=== PATIENT | male | born 1975 | race Two or more races ===

== ENCOUNTER 2020-06-27 06:21 | Inpatient (IN) | payer OTHER ==
[~2020-06-27] VITALS: Ht 167.6 cm; Wt 63.5 kg
[2020-06-27] VITALS (20 sets, daily range): BP systolic 91–121; BP diastolic 54–96
[2020-06-27] MEDS ORDERED: Insulin Human Regular 100units/ml 3ml IV ONE (06:30)
--- NOTE | 2020-06-27 06:33 | Emergency Room Report ---
History of Present Illness General Chief Complaint: Generalized Weakness Source: Patient, EMS Present Illness HPI Patient is a 44-year-old male past medical history of diabetes type 2 not insulin-dependent who presents to the ER for generalized weakness. Patient was brought in from home by EMS. Patient's blood sugar was reading high which is over 500. Patient denies fever or chills. He complains of nausea. He complains of generalized body aches. He denies any chest pain or shortness of breath. He denies any abdominal pain or vomiting. Allergies: Coded Allergies: No Known Allergies (Unverified , 06/27/20) COVID-19 Screening Contact w/high risk pt: No Experienced COVID-19 symptoms?: No COVID-19 Testing performed SCHOOL PSYCHOLOGY SPECIALIST: No Patient History Reviewed Nursing Documentation: PMH: Agreed; PSxH: Agreed Nursing Documentation-PMH Hx Diabetes: Yes - DM 2 Review of Systems All Other Systems: negative except mentioned in HPI Physical Exam Vital Signs Date Time Temp Pulse Resp B/P (MAP) Pulse Ox O2 Delivery O2 Flow Rate FiO2 06/27/20 06:18 98.6 98 16 104/74 (84) 98 Room Air Sp02 EP Interpretation: reviewed, normal General Appearance: mild distress, thin Head: normocephalic, atraumatic Eyes: bilateral eye normal inspection, bilateral eye PERRL ENT: dry mucus membranes Neck: full range of motion, supple/symm/no masses Respiratory: chest non-tender, lungs clear, normal breath sounds, speaking full sentences Cardiovascular #1: tachycardia Gastrointestinal: normal bowel sounds, non tender, soft, non-distended, no guarding, no rebound Rectal: deferred Musculoskeletal: normal range of motion, no calf tenderness, no lower extremity edema Neurologic: hand frame surgical elastic knitter III-XII nml as tested, oriented x3 Psychiatric: no suicidal/homicidal ideation Skin: no rash Lymphatic: no adenopathy Procedures Critical Care Time Critical Care Time Total critical care time: Approximately 35 minutes. Due to a high probability of clinically significant, life threatening deterioration, the patient required my highest level of preparedness to intervene emergently and I personally spent this critical care time directly and personally managing the patient. This critical care time included obtaining a history; examining the patient; pulse o ximetry; ordering and review of studies; arranging urgent treatment with development of a management plan; evaluation of patient's response to treatment; frequent reassessment; and, discussions with other providers.This critical care time was performed to assess and manage the high probability of imminent, life- threatening deterioration that could result in multi-organ failure. It was exclusive of separately billable procedures and treating other patients and teaching time. Please see MDM section and the rest of the note for further information on patient assessment and treatment. Medical Decision Making Diagnostic Impression: Primary Impression: DKA, type 2 Additional Impressions: Hyponatremia Dehydration Hypokalemia ER Course Patient pancultured. Patient is hemoconcentrated. Patient was started on broad-spectrum antibiotics. Patient has elevated white blood cell count with mildly elevated lactic acid. Could be secondary to DKA but treated as sepsis. Patient's potassium is only 2.5. Patient is being given 60 mEq of IV potassium chloride as well as 60 mEq of oral potassium chloride prior to start of insulin drip. Patient will be admitted to ICU for further treatment and evaluation. Laboratory Tests Test 06/27/20 06:31 06/27/20 06:32 06/27/20 06:38 06/27/20 08:31 Venous Blood pH 7.241 Venous Blood Partial Pressure CO2 27.0 Venous Blood Partial Pressure O2 25.1 Venous Blood HCO3 11.3 Venous Blood Base Excess -14.1 Venous Blood Carboxyhemoglobin 0.7 % (0.5-1.5) Methemoglobin 0.4 White Blood Count 26.0 K/UL (4.8-10.8) *H Red Blood Count 5.43 M/UL (4.70-6.10) Hemoglobin 17.5 G/DL (14.2-18.0) Hematocrit 54.8 % (42.0-52.0) H Mean Corpuscular Volume 101 FL (80-99) H Mean Corpuscular Hemoglobin 32.2 PG (27.0-31.0) H Mean Corpuscular Hemoglobin Concent 32.0 G/DL (32.0-36.0) Red Cell Distribution Width 12.4 % (11.6-14.8) Platelet Count 321 K/UL (150-450) Mean Platelet Volume 6.8 FL (6.5-10.1) Neutrophils (%) (Auto) % (45.0-75.0) Lymphocytes (%) (Auto) % (20.0-45.0) Monocytes (%) (Auto) % (1.0-10.0) Eosinophils (%) (Auto) % (0.0-3.0) Basophils (%) (Auto) % (0.0-2.0) Differential Total Cells Counted 100 Neutrophils % (Manual) 82 % (45-75) H Lymphocytes % (Manual) 6 % (20-45) L Monocytes % (Manual) 4 % (1-10) Eosinophils % (Manual) 0 % (0-3) Basophils % (Manual) 0 % (0-2) Band Neutrophils 8 % (0-8) Platelet Estimate Adequate Platelet Morphology Normal Macrocytosis 1+ Sodium Level 128 MMOL/L (136-145) L Potassium Level 2.5 MMOL/L (3.5-5.1) *L Chloride Level 84 MMOL/L (98-107) L Carbon Dioxide Level 12 MMOL/L (21-32) L Anion Gap 32 mmol/L (5-15) H Blood Urea Nitrogen 56 mg/dL (7-18) H Creatinine 2.0 MG/DL (0.55-1.30) H Estimated Glomerular Filtration Rate 36.8 mL/min (>60) Glucose Level 797 MG/DL (74-106) *H Calcium Level 7.4 MG/DL (8.5-10.1) L Magnesium Level 2.7 MG/DL (1.8-2.4) H Total Bilirubin 0.7 MG/DL (0.2-1.0) Aspartate Amino Transferase (AST) 12 U/L (15-37) L Alanine Aminotransferase (ALT) 16 U/L (12-78) Alkaline Phosphatase 92 U/L (46-116) Troponin I 0.007 ng/mL (0.000-0.056) Total Protein 6.9 G/DL (6.4-8.2) Albumin 2.9 G/DL (3.4-5.0) L Globulin 4.0 g/dL Albumin/Globulin Ratio 0.7 (1.0-2.7) L Lipase 74 U/L (73-393) Acetone Level Positive-small (NEGATIVE) Lactic Acid Level 2.60 mmol/L (0.4-2.0) H POC Whole Blood Glucose Pending Test 06/27/20 09:05 06/27/20 09:09 Urine Color Pale yellow Urine Appearance Clear Urine pH 5 (4.5-8.0) Urine Specific Harshaw 1.015 (1.005-1.035) Urine Protein 1+ (NEGATIVE) H Urine Glucose (UA) 4+ (NEGATIVE) H Urine Ketones 4+ (NEGATIVE) H Urine Blood 3+ (NEGATIVE) H Urine Nitrite Negative (NEGATIVE) Urine Bilirubin Negative (NEGATIVE) Urine Urobilinogen Normal MG/DL (0.0-1.0) Urine Leukocyte Esterase Negative (NEGATIVE) Urine RBC 0-2 /HPF (0 - 0) H Urine WBC 0 /HPF (0 - 0) Urine Squamous Epithelial Cells Occasional /LPF Urine Bacteria Occasional /HPF (NONE) Urine Opiates Screen Negative (NEGATIVE) Urine Barbiturates Screen Negative (NEGATIVE) Phencyclidine (PCP) Screen Negative (NEGATIVE) Urine Amphetamines Screen Negative (NEGATIVE) Urine Benzodiazepines Screen Negative (NEGATIVE) Urine Cocaine Screen Negative (NEGATIVE) Urine Marijuana (THC) Screen Positive (NEGATIVE) H Lactic Acid Level Pending EKG Diagnostic Results Troponin ordered: Yes When was troponin ordered?: Jun 27, 2020 EKG Time: 06:35 EP Interpretation: Lavern Angela MD Rate: tachycardiac - 132 bpm Rhythm: other - Sinus tachycardia ST Segments: no acute changes ASA given to the pt in ED: No Rhythm Strip Diag. Results Rhythm Strip Time: 06:42 EP Interpretation: yes - Lavern Angela MD Rate: 128 bpm Rhythm: no PVC's, no ectopy, other - Sinus tachycardia Chest X-Ray Diagnostic Results Chest X-Ray Diagnostic Results : Chest X-Ray Ordered: Yes # of Views/Limited/Complete: 1 View Indication: Other - DKA EP Interpretation: Yes Interpretation: no consolidation, no effusion, no pneumothorax, no acute cardiopulmonary disease Impression: No acute disease Electronically Signed by: Lavern Angela MD Last Vital Signs Date Time Temp Pulse Resp B/P (MAP) Pulse Ox O2 Delivery O2 Flow Rate FiO2 06/27/20 06:18 98.6 98 16 104/74 (84) 98 Room Air Disposition: ADMITTED INPATIENT - ICU Condition: Critical Physician Consult: Dr Bernstein and Dr. Kumar Scripts No Active Prescriptions or Reported Meds Additional Instructions: Please note that this report is being documented using [employer] technology. This can lead to erroneous entry secondary to incorrect interpretation by the dictating instrument. Sepsis Event Note Evaluation Current Stage of Sepsis: Sepsis Possible Source: Unknown Focused Exam Allergies: Coded Allergies: No Known Allergies (Unverified , 06/27/20) Date Exam Occurred: Jun 27, 2020 Time Exam Occurred: 10:00 Laboratory Studies Laboratory Tests Test 06/27/20 06:31 06/27/20 06:32 06/27/20 06:38 06/27/20 08:31 Venous Blood pH 7.241 Venous Blood Partial Pressure CO2 27.0 Venous Blood Partial Pressure O2 25.1 Venous Blood HCO3 11.3 Venous Blood Base Excess -14.1 Venous Blood Carboxyhemoglobin 0.7 % (0.5-1.5) Methemoglobin 0.4 White Blood Count 26.0 K/UL (4.8-10.8) *H Red Blood Count 5.43 M/UL (4.70-6.10) Hemoglobin 17.5 G/DL (14.2-18.0) Hematocrit 54.8 % (42.0-52.0) H Mean Corpuscular Volume 101 FL (80-99) H Mean Corpuscular Hemoglobin 32.2 PG (27.0-31.0) H Mean Corpuscular Hemoglobin Concent 32.0 G/DL (32.0-36.0) Red Cell Distribution Width 12.4 % (11.6-14.8) Platelet Count 321 K/UL (150-450) Mean Platelet Volume 6.8 FL (6.5-10.1) Neutrophils (%) (Auto) % (45.0-75.0) Lymphocytes (%) (Auto) % (20.0-45.0) Monocytes (%) (Auto) % (1.0-10.0) Eosinophils (%) (Auto) % (0.0-3.0) Basophils (%) (Auto) % (0.0-2.0) Differential Total Cells Counted 100 Neutrophils % (Manual) 82 % (45-75) H Lymphocytes % (Manual) 6 % (20-45) L Monocytes % (Manual) 4 % (1-10) Eosinophils % (Manual) 0 % (0-3) Basophils % (Manual) 0 % (0-2) Band Neutrophils 8 % (0-8) Platelet Estimate Adequate Platelet Morphology Normal Macrocytosis 1+ Sodium Level 128 MMOL/L (136-145) L Potassium Level 2.5 MMOL/L (3.5-5.1) *L Chloride Level 84 MMOL/L (98-107) L Carbon Dioxide Level 12 MMOL/L (21-32) L Anion Gap 32 mmol/L (5-15) H Blood Urea Nitrogen 56 mg/dL (7-18) H Creatinine 2.0 MG/DL (0.55-1.30) H Estimat Glomerular Filtration Rate 36.8 mL/min (>60) Glucose Level 797 MG/DL (74-106) *H Calcium Level 7.4 MG/DL (8.5-10.1) L Magnesium Level 2.7 MG/DL (1.8-2.4) H Total Bilirubin 0.7 MG/DL (0.2-1.0) Aspartate Amino Transf (AST/SGOT) 12 U/L (15-37) L Alanine Aminotransferase (ALT/SGPT) 16 U/L (12-78) Alkaline Phosphatase 92 U/L (46-116) Troponin I 0.007 ng/mL (0.000-0.056) Total Protein 6.9 G/DL (6.4-8.2) Albumin 2.9 G/DL (3.4-5.0) L Globulin 4.0 g/dL Albumin/Globulin Ratio 0.7 (1.0-2.7) L Lipase 74 U/L (73-393) Acetone Level Positive-small (NEGATIVE) Lactic Acid Level 2.60 mmol/L (0.4-2.0) H POC Whole Blood Glucose Pending Test 06/27/20 09:05 06/27/20 09:09 Urine Color Pale yellow Urine Appearance Clear Urine pH 5 (4.5-8.0) Urine Specific Harshaw 1.015 (1.005-1.035) Urine Protein 1+ (NEGATIVE) H Urine Glucose (UA) 4+ (NEGATIVE) H Urine Ketones 4+ (NEGATIVE) H Urine Blood 3+ (NEGATIVE) H Urine Nitrite Negative (NEGATIVE) Urine Bilirubin Negative (NEGATIVE) Urine Urobilinogen Normal MG/DL (0.0-1.0) Urine Leukocyte Esterase Negative (NEGATIVE) Urine RBC 0-2 /HPF (0 - 0) H Urine WBC 0 /HPF (0 - 0) Urine Squamous Epithelial Cells Occasional /LPF Urine Bacteria Occasional /HPF (NONE) Urine Opiates Screen Negative (NEGATIVE) Urine Barbiturates Screen Negative (NEGATIVE) Phencyclidine (PCP) Screen Negative (NEGATIVE) Urine Amphetamines Screen Negative (NEGATIVE) Urine Benzodiazepines Screen Negative (NEGATIVE) Urine Cocaine Screen Negative (NEGATIVE) Urine Marijuana (THC) Screen Positive (NEGATIVE) H Lactic Acid Level Pending Vital Signs Last 24 Hour Vital Signs Date Time Temp Pulse Resp B/P (MAP) Pulse Ox O2 Delivery O2 Flow Rate FiO2 06/27/20 08:40 98.2 118 24 116/77 100 Room Air 06/27/20 07:17 98.2 126 27 121/86 100 Room Air 06/27/20 06:21 98.6 121 16 98/76 98 Room Air 06/27/20 06:21 121 16 Room Air 06/27/20 06:18 98.6 98 16 104/74 (84) 98 Room Air Respiratory Exam: Clear Cardiovascular Exam: Tachycardia Capillary Refill: Less Than 2 Seconds Peripheral Pulse: Strong Lavern Angela M.D. Jun 27, 2020 06:33
[2020-06-27 06:46] LABS: HEMATOCRIT 54.8 % (42.0-52.0); HEMOGLOBIN 17.5 G/DL (14.2-18.0); MEAN CORPUSCULAR VOLUME 101 FL (80-99); PLATELET COUNT 321 K/UL (150-450); RED BLOOD COUNT 5.43 M/UL (4.70-6.10); RED CELL DISTRIBUTION WIDTH 12.4 % (11.6-14.8)
[2020-06-27] MEDS ORDERED: Sodium Bicarbonate 50ml Carp IV ONE (07:00)
[2020-06-27] MEDS ORDERED: Cefepime HCl 2 GM in D5W 55 ML IVPB ONE (07:00)
[2020-06-27] MEDS ORDERED: Azithromycin 500 MG in NS 275 ML IV ONE (07:00)
[2020-06-27 08:03] LABS: ALANINE AMINOTRANSFERASE 16 U/L (12-78); ALBUMIN 2.9 G/DL (3.4-5.0); ALBUMIN/GLOBULIN RATIO 0.7 (1.0-2.7); ALKALINE PHOSPHATASE 92 U/L (46-116); ANION GAP 32 mmol/L (5-15); ASPARTATE AMINO TRANSFERASE 12 U/L (15-37); BILIRUBIN,TOTAL 0.7 MG/DL (0.2-1.0); BLOOD UREA NITROGEN 56 mg/dL (7-18); CALCIUM 7.4 MG/DL (8.5-10.1); CARBON DIOXIDE 12 MMOL/L (21-32); CHLORIDE 84 MMOL/L (98-107); SODIUM 128 MMOL/L (136-145)
[2020-06-27 08:05] LABS: POTASSIUM 2.5 MMOL/L (3.5-5.1)
[2020-06-27 09:20] LABS: APPEARANCE,URINE CLEAR; BILIRUBIN, URINE NEGATIVE (NEGATIVE); COLOR,URINE PALE YELLOW; GLUCOSE, URINE (UA) 4+ (NEGATIVE); KETONES,URINE 4+ (NEGATIVE); LEUKOCYTE ESTERASE ,URINE NEGATIVE (NEGATIVE); NITRITE,URINE NEGATIVE (NEGATIVE); PH,URINE 5 (4.5-8.0); PROTEIN,URINE 1+ (NEGATIVE); UROBILINOGEN,URINE NORMAL MG/DL (0.0-1.0)
--- NOTE | 2020-06-27 10:30 | Diagnostic Imaging Report ---
Indication: Reason For Exam: Shortness of breath Technique: Single AP view of the chest. Comparison: None. Findings: The cardiomediastinal silhouette is within normal limits. There is no focal consolidation, pneumothorax or pleural effusion. Osseous structures demonstrate no acute abnormality. IMPRESSION: No radiographic evidence of acute cardiopulmonary process.
--- NOTE | 2020-06-27 11:26 | History and Physical ---
History of Present Illness General Date patient seen: Jun 27, 2020 Reason for Hospitalization: DKA Present Illness HPI Ramon Méndez is a 44 yo M with T2DM who presents to hospital with weakness, found to have DKA with glucose over 900, pH 7.24 on VBG, anion gap 32, severe hypokalemia now admitted to ICU. Patient has been feeling ill for past 2-3 days. Denies any precipitating factors like viral infection, sick contacts. Denies fever, chills, cough. Had been vomiting almost all solid food and most liquids he tried to consume since the past 2 days. Tried drinking pedialyte. Noticed he was urinating frequently but denies dysuria, hematuria. Takes oral diabetes me dication metformin. PMH: diabetes mellitus, type 2 PSH: denies FH: extensive family history of diabetes Soc Hx: denies smoking, drinking, substance use Allergies: Coded Allergies: No Known Allergies (Unverified , 06/27/20) COVID-19 Screening Contact w/high risk pt: No Recent Travel to affected area: No Experienced COVID-19 symptoms?: No Medication History No Active Prescriptions or Reported Meds Patient History Healthcare decision maker Resuscitation status Advanced Directive on File Review of Systems Constitutional: Reports: weakness; Denies: chills, fever Eye: Denies: eye pain, nose pain ENT: Denies: ear pain, throat pain Respiratory: Denies: cough, orthopnea, shortness of breath Cardiovascular: Denies: chest pain, edema, palpitations Gastrointestinal: Reports: abdominal pain, nausea, vomiting; Denies: melena, hematemesis Genitourinary: Denies: dysuria, hematuria Musculoskeletal: Denies: joint pain Skin: Denies: rash, dryness Psychiatric: Denies: anxiety Neurological: Denies: numbness, paresthesia Endocrine: Denies: excessive sweating, intolerance to temperature Hematologic/Lymphatic: Denies: anemia, easy bleeding Physical Exam General Appearance: WD/WN, no apparent distress, alert HEENT: normocephalic, atraumatic, PERRL, EOMI, pharynx normal Neck: non-tender, normal alignment, normal inspection Respiratory/Chest: chest wall non-tender, lungs clear, normal breath sounds, no respiratory distress, no accessory muscle use Cardiovascular/Chest: normal peripheral pulses, regular rhythm, no gallop/murmur, tachycardia Abdomen: normal bowel sounds, non tender, soft, no organomegaly Extremities: normal range of motion, non-tender, no calf tenderness, no edema, no cyanosis Skin Exam: normal pigmentation, warm/dry Neurologic: podiatric technician II-XII grossly normal, alert, oriented x 3, normal mood/affect Musculoskeletal: normal muscle bulk Last 24 Hour Vital Signs Date Time Temp Pulse Resp B/P (MAP) Pulse Ox O2 Delivery O2 Flow Rate FiO2 06/27/20 08:40 98.2 118 24 116/77 100 Room Air 06/27/20 07:17 98.2 126 27 121/86 100 Room Air 06/27/20 06:21 98.6 121 16 98/76 98 Room Air 06/27/20 06:21 121 16 Room Air 06/27/20 06:18 98.6 98 16 104/74 (84) 98 Room Air Laboratory Tests Test 06/27/20 06:31 06/27/20 06:32 06/27/20 06:38 06/27/20 08:31 Venous Blood pH 7.241 Venous Blood Partial Pressure CO2 27.0 Venous Blood Partial Pressure O2 25.1 Venous Blood HCO3 11.3 Venous Blood Base Excess -14.1 Venous Blood Carboxyhemoglobin 0.7 % (0.5-1.5) Methemoglobin 0.4 White Blood Count 26.0 K/UL (4.8-10.8) *H Red Blood Count 5.43 M/UL (4.70-6.10) Hemoglobin 17.5 G/DL (14.2-18.0) Hematocrit 54.8 % (42.0-52.0) H Mean Corpuscular Volume 101 FL (80-99) H Mean Corpuscular Hemoglobin 32.2 PG (27.0-31.0) H Mean Corpuscular Hemoglobin Concent 32.0 G/DL (32.0-36.0) Red Cell Distribution Width 12.4 % (11.6-14.8) Platelet Count 321 K/UL (150-450) Mean Platelet Volume 6.8 FL (6.5-10.1) Neutrophils (%) (Auto) % (45.0-75.0) Lymphocytes (%) (Auto) % (20.0-45.0) Monocytes (%) (Auto) % (1.0-10.0) Eosinophils (%) (Auto) % (0.0-3.0) Basophils (%) (Auto) % (0.0-2.0) Differential Total Cells Counted 100 Neutrophils % (Manual) 82 % (45-75) H Lymphocytes % (Manual) 6 % (20-45) L Monocytes % (Manual) 4 % (1-10) Eosinophils % (Manual) 0 % (0-3) Basophils % (Manual) 0 % (0-2) Band Neutrophils 8 % (0-8) Platelet Estimate Adequate Platelet Morphology Normal Macrocytosis 1+ Sodium Level 128 MMOL/L (136-145) L Potassium Level 2.5 MMOL/L (3.5-5.1) *L Chloride Level 84 MMOL/L (98-107) L Carbon Dioxide Level 12 MMOL/L (21-32) L Anion Gap 32 mmol/L (5-15) H Blood Urea Nitrogen 56 mg/dL (7-18) H Creatinine 2.0 MG/DL (0.55-1.30) H Estimat Glomerular Filtration Rate 36.8 mL/min (>60) Glucose Level 797 MG/DL (74-106) *H Calcium Level 7.4 MG/DL (8.5-10.1) L Magnesium Level 2.7 MG/DL (1.8-2.4) H Total Bilirubin 0.7 MG/DL (0.2-1.0) Aspartate Amino Transf (AST/SGOT) 12 U/L (15-37) L Alanine Aminotransferase (ALT/SGPT) 16 U/L (12-78) Alkaline Phosphatase 92 U/L (46-116) Troponin I 0.007 ng/mL (0.000-0.056) Total Protein 6.9 G/DL (6.4-8.2) Albumin 2.9 G/DL (3.4-5.0) L Globulin 4.0 g/dL Albumin/Globulin Ratio 0.7 (1.0-2.7) L Lipase 74 U/L (73-393) Acetone Level Positive-small (NEGATIVE) Lactic Acid Level 2.60 mmol/L (0.4-2.0) H POC Whole Blood Glucose Pending Test 06/27/20 09:05 06/27/20 09:09 Urine Color Pale yellow Urine Appearance Clear Urine pH 5 (4.5-8.0) Urine Specific Roy 1.015 (1.005-1.035) Urine Protein 1+ (NEGATIVE) H Urine Glucose (UA) 4+ (NEGATIVE) H Urine Ketones 4+ (NEGATIVE) H Urine Blood 3+ (NEGATIVE) H Urine Nitrite Negative (NEGATIVE) Urine Bilirubin Negative (NEGATIVE) Urine Urobilinogen Normal MG/DL (0.0-1.0) Urine Leukocyte Esterase Negative (NEGATIVE) Urine RBC 0-2 /HPF (0 - 0) H Urine WBC 0 /HPF (0 - 0) Urine Squamous Epithelial Cells Occasional /LPF Urine Bacteria Occasional /HPF (NONE) Urine Opiates Screen Negative (NEGATIVE) Urine Barbiturates Screen Negative (NEGATIVE) Phencyclidine (PCP) Screen Negative (NEGATIVE) Urine Amphetamines Screen Negative (NEGATIVE) Urine Benzodiazepines Screen Negative (NEGATIVE) Urine Cocaine Screen Negative (NEGATIVE) Urine Marijuana (THC) Screen Positive (NEGATIVE) H Lactic Acid Level 1.70 mmol/L (0.66-2.22) Height (Feet): 5 Height (Inches): 5.00 Weight (Pounds): 140 Medications Current Medications Medications (Trade) Dose Ordered Sig/Kalee Route PRN Reason Start Time Stop Time Status Last Admin Dose Admin Potassium Chloride 100 ml @ 100 mls/hr Q1HR IVPB 06/27/20 09:00 06/27/20 14:59 06/27/20 10:30 Assessment/Plan Assessment/Plan: #DKA #T2DM #Nausea/Vomiting #Hypokalemia Gap now closed. Initial glucose over 900, pH 7.24 on VBG, anion gap 32, urine ketone positive, severe hypokalemia now admitted to ICU. s/p 5 units IV insulin in ED and IVF boluses. - IVF with KCl - frequent glucose checks - BMP q4 hours - Insulin drip - Will transition to subQ insulin after gap remains closed - Endocrinology consult Dr. Parisi, recs appreciated - Pulmonology consult Dr. Kumar, recs appreciated #ERICKA #Hyponatremia No history of renal disease, initial Cr 1.5, now downtrending with IVF. Likely 2/2 dehydration. Sodium likely pseudohyponatremia from severe hyperglycemia. - IVF - trend BMP Diet: low carb DVT ppx: heparin subQ Code status: Full Dispo: likely home in 1-2 days pending symptomatic improvement and maintenance of anion gap closure/transition to subQ insulin I spent 82 minutes on this patient's case, and 42 minutes was dedicated to counseling and/or care coordination with RN, transplant case manager, consulting MD team I spent 40 of critical care time on this patient's case, including discussing with BIOLOGICAL AIDE regarding treatment plan, ordering DKA algorithm, frequent glucose and BMP checks, insulin drip calculations. Time of note may not reflect time patient was seen. Vernon Harvey M.D. Jun 27, 2020 11:26
[2020-06-27] MEDS ORDERED: Insulin Rate Change 1 Each MISC PRN (14:45)
[2020-06-27] MEDS: D5 1/2NS w/KCl 20mEq 1,000 ML IV SCH ×2 (16:00→22:44)
[2020-06-27 16:10] LABS: CALCIUM 8.6 MG/DL (8.5-10.1); CREATININE 1.5 MG/DL (0.55-1.30); POTASSIUM 4.2 MMOL/L (3.5-5.1)
[2020-06-27] MEDS: Insulin Reg 100 units Premix 100 ML IV SCH ×5 (16:30→21:03)
[2020-06-27] MEDS: Insulin Human Regular 100units/ml 3ml IV PRN ×4 (16:32→19:55)
--- NOTE | 2020-06-27 20:15 | Consultation ---
DATE OF CONSULTATION: 06/27/2020 PULMONARY CONSULTATION/ICU CONSULTATION CONSULTING PHYSICIAN: Kaz Kumar MD HISTORY OF PRESENT ILLNESS: This is a 44-year-old male with history of diabetes mellitus. He was brought by paramedics to the emergency room today with complaints of difficulty breathing. As per machinery mover notes, the patient was found sitting outside his home waiting for fire department. He had apparently called because he was feeling unwell. The patient was seen and evaluated in the emergency room. He has known history of [id number]-fnuivlcny diabetes. His sugar was over 500. He was found to be in DKA and was started on fluids and insulin. At this time, the patient states he is feeling better. PAST MEDICAL HISTORY: Diabetes mellitus. MEDICATIONS: Home medications not known at this time. Current medications include insulin, dextrose with potassium, subcu heparin, and Protonix. He has also received a single dose of cefepime and azithromycin in the emergency room. REVIEW OF SYSTEMS: Denies any headaches, hematemesis, melena, hematochezia, or weight loss. PREVIOUS SURGERIES: None. PHYSICAL EXAMINATION: GENERAL: Revealed a 44-year-old male. VITAL SIGNS: Blood pressure is 118/70, heart rate is 104, respirations 22, he is afebrile, and O2 sat 98% on room air. HEENT: Unremarkable. CHEST: Clear breath sounds bilaterally. ABDOMEN: Soft. EXTREMITIES: There is no edema. NEUROLOGIC: Nonfocal. LABORATORY DATA: Lab testing shows white count , hemoglobin of 17. Potassium 4.2 now, previously was 2.5. Initial glucose of 797. Current glucose 464. Hemoglobin A1c 10.5. Creatinine 2.6, now 1.7. ABG, pH 7.24, pCO2 of 27, pO2 of 25; this is venous gas. IMAGING STUDIES: Unremarkable with normal chest x-ray. IMPRESSION: 1. DKA. 2. Leukocytosis. 3. Hypokalemia. DISCUSSION: Admit to the hospital. Replace potassium. IV fluids. DVT prophylaxis. Insulin intravenously. Consider antibiotics. We will follow carefully. Kaz Kumar M.D. : Sneha JOB#: [id number] CC:
[2020-06-27 20:43] LABS: BLOOD UREA NITROGEN 30 mg/dL (7-18); CALCIUM 8.6 MG/DL (8.5-10.1); CARBON DIOXIDE 14 MMOL/L (21-32); CHLORIDE 99 MMOL/L (98-107); CREATININE 1.4 MG/DL (0.55-1.30); POTASSIUM 3.3 MMOL/L (3.5-5.1); SODIUM 133 MMOL/L (136-145)
[2020-06-27] MEDS: Heparin 5000 units/ml inj SUBQ SCH (21:10)
[2020-06-28] VITALS (18 sets, daily range): BP systolic 95–132; BP diastolic 61–84
[2020-06-28 00:11] LABS: ANION GAP 12 mmol/L (5-15); BLOOD UREA NITROGEN 25 mg/dL (7-18); CALCIUM 8.5 MG/DL (8.5-10.1); CARBON DIOXIDE 20 MMOL/L (21-32); CHLORIDE 103 MMOL/L (98-107); CREATININE 1.2 MG/DL (0.55-1.30); POTASSIUM 3.6 MMOL/L (3.5-5.1); SODIUM 135 MMOL/L (136-145)
[2020-06-28] MEDS: Insulin Reg 100 units Premix 100 ML IV SCH (04:14)
[2020-06-28 05:12] LABS: BASOPHILS % (AUTO) 1.2 % (0.0-2.0); HEMATOCRIT 41.1 % (42.0-52.0); HEMOGLOBIN 14.4 G/DL (14.2-18.0); LYMPHOCYTES % (AUTO) 6.3 % (20.0-45.0); MEAN CORPUSCULAR VOLUME 90 FL (80-99); MONOCYTES % (AUTO) 7.9 % (1.0-10.0); NEUTROPHILS % (AUTO) 84.6 % (45.0-75.0); PLATELET COUNT 242 K/UL (150-450); RED BLOOD COUNT 4.56 M/UL (4.70-6.10); RED CELL DISTRIBUTION WIDTH 11.6 % (11.6-14.8); WHITE BLOOD COUNT 14.5 K/UL (4.8-10.8)
[2020-06-28] MEDS: D5 1/2NS w/KCl 20mEq 1,000 ML IV SCH ×3 (05:16→18:06)
[2020-06-28 05:36] LABS: ANION GAP 9 mmol/L (5-15); BLOOD UREA NITROGEN 23 mg/dL (7-18); CALCIUM 7.9 MG/DL (8.5-10.1); CARBON DIOXIDE 22 MMOL/L (21-32); CHLORIDE 102 MMOL/L (98-107); CREATININE 1.1 MG/DL (0.55-1.30); POTASSIUM 3.5 MMOL/L (3.5-5.1); SODIUM 133 MMOL/L (136-145)
[2020-06-28 08:36] LABS: ANION GAP 8 mmol/L (5-15); BLOOD UREA NITROGEN 18 mg/dL (7-18); CALCIUM 8.3 MG/DL (8.5-10.1); CARBON DIOXIDE 22 MMOL/L (21-32); CHLORIDE 102 MMOL/L (98-107); CREATININE 0.9 MG/DL (0.55-1.30); POTASSIUM 3.6 MMOL/L (3.5-5.1); SODIUM 132 MMOL/L (136-145)
[2020-06-28] MEDS: Pantoprazole Inj IV SCH (09:02)
[2020-06-28] MEDS: Heparin 5000 units/ml inj SUBQ SCH ×2 (09:21→21:52)
[2020-06-28] MEDS ORDERED: Levemir Flexpen SUBQ SCH (10:00)
--- NOTE | 2020-06-28 10:40 | Pulmonology Progress Note ---
Subjective Interval Events: Remains in ICU; or insulin gtt Constitutional: Reports: no symptoms HEENT: Repors: no symptoms Respiratory: Reports: no symptoms Cardiovascular: Reports: no symptoms Gastrointestinal/Abdominal: Reports: no symptoms Allergies: Coded Allergies: No Known Allergies (Unverified , 06/27/20) Objective Last 24 Hour Vital Signs Date Time Temp Pulse Resp B/P (MAP) Pulse Ox O2 Delivery O2 Flow Rate FiO2 06/28/20 10:00 119 21 104/70 (81) 98 06/28/20 09:00 110 16 101/74 (83) 99 06/28/20 08:00 98.4 112 17 112/75 (87) 99 06/28/20 08:00 Room Air Room Air 06/28/20 07:43 107 06/28/20 07:00 118 20 132/74 (93) 99 06/28/20 06:00 113 16 109/72 (84) 98 06/28/20 05:00 105 17 115/77 (90) 99 06/28/20 04:00 Room Air Room Air 06/28/20 04:00 98.4 108 16 110/76 (87) 98 06/28/20 03:01 109 06/28/20 03:00 114 17 108/77 (87) 98 06/28/20 02:00 127 21 111/84 (93) 98 06/28/20 01:00 115 16 119/79 (92) 97 06/28/20 00:00 97.5 126 17 101/61 (74) 98 06/28/20 00:00 Room Air Room Air 06/27/20 23:02 118 06/27/20 23:00 122 19 114/76 (89) 98 06/27/20 22:00 129 18 102/65 (77) 98 06/27/20 21:00 131 19 101/63 (76) 98 06/27/20 20:00 97.4 130 20 91/65 (74) 98 06/27/20 20:00 Room Air Room Air 06/27/20 19:43 130 06/27/20 19:30 132 19 109/72 (84) 96 06/27/20 19:00 130 21 98/67 (77) 98 06/27/20 18:30 133 20 103/72 (82) 98 06/27/20 18:00 129 20 106/72 (83) 99 06/27/20 17:30 125 19 115/96 (102) 100 06/27/20 17:00 126 22 120/86 (97) 100 06/27/20 16:30 128 23 106/68 (81) 98 06/27/20 16:00 Room Air 06/27/20 16:00 97.6 127 17 96/67 (77) 100 06/27/20 16:00 128 06/27/20 15:30 124 16 104/63 (77) 98 06/27/20 15:00 132 21 107/67 (80) 99 06/27/20 14:30 127 24 108/73 (85) 100 06/27/20 14:14 127 20 107/79 (88) 99 06/27/20 13:50 98.2 109 20 118/78 100 Room Air 06/27/20 13:32 98.2 109 20 118/78 100 Room Air 06/27/20 13:32 98.0 129 22 120/54 99 Room Air Intake and Output 06/27/20 06/28/20 19:00 07:00 Intake Total 660 ml 2775.933 ml Output Total 120 ml 1400 ml Balance 540 ml 1375.933 ml Intake Oral 510 ml 944 ml IV Total 150 ml 1831.933 ml Output Urine Total 1400 ml Emesis 120 ml # Voids 7 General Appearance: no acute distress HEENT: normocephalic Respiratory: chest wall non-tender, lungs clear Cardiovascular: normal peripheral pulses, normal rate Abdomen: normal bowel sounds, soft, non tender Extremities: no cyanosis Microbiology Date/Time Source Procedure Growth Status 06/27/20 11:27 Rectum Received Laboratory Tests 06/27/20 15:45: Sodium Level 134L, Potassium Level 4.2#, Chloride Level 95L, Carbon Dioxide Level 11L, Anion Gap 28H, Blood Urea Nitrogen 36H, Creatinine 1.5H, Estimat Glomerular Filtration Rate 51.3, Glucose Level 464#H, Hemoglobin A1c 10.5H, Calcium Level 8.6 06/27/20 16:23: POC Whole Blood Glucose [Pending] 06/27/20 17:44: POC Whole Blood Glucose [Pending] 06/27/20 19:00: POC Whole Blood Glucose [Pending] 06/27/20 19:51: POC Whole Blood Glucose [Pending] 06/27/20 20:00: Sodium Level 133L, Potassium Level 3.3L, Chloride Level 99, Carbon Dioxide Level 14L, Blood Urea Nitrogen 30H, Creatinine 1.4H, Estimat Glomerular Filtration Rate 55.6, Glucose Level 228#H, Calcium Level 8.6 06/27/20 20:53: POC Whole Blood Glucose 184H 06/27/20 21:50: POC Whole Blood Glucose 165H 06/27/20 22:48: POC Whole Blood Glucose 146H 06/27/20 23:42: POC Whole Blood Glucose [Pending] 06/27/20 23:45: Sodium Level 135L, Potassium Level 3.6, Chloride Level 103, Carbon Dioxide Level 20L, Anion Gap 12, Blood Urea Nitrogen 25H, Creatinine 1.2, Estimat Glomerular Filtration Rate > 60, Glucose Level 141H, Calcium Level 8.5 06/28/20 00:52: POC Whole Blood Glucose 142H 06/28/20 01:55: POC Whole Blood Glucose 106 06/28/20 02:53: POC Whole Blood Glucose 114H 06/28/20 03:45: White Blood Count 14.5H, Red Blood Count 4.56L, Hemoglobin 14.4, Hematocrit 41.1L, Mean Corpuscular Volume 90#, Mean Corpuscular Hemoglobin 31.7H, Mean Corpuscular Hemoglobin Concent 35.1, Red Cell Distribution Width 11.6, Platelet Count 242, Mean Platelet Volume 7.1, Neutrophils (%) (Auto) 84.6H, Lymphocytes (%) (Auto) 6.3L, Monocytes (%) (Auto) 7.9, Eosinophils (%) (Auto) 0.0, Basophils (%) (Auto) 1.2, Sodium Level 133L, Potassium Level 3.5, Chloride Level 102, Carbon Dioxide Level 22, Anion Gap 9, Blood Urea Nitrogen 23H, Creatinine 1.1, Estimat Glomerular Filtration Rate > 60, Glucose Level 132H, Calcium Level 7.9L 06/28/20 04:52: POC Whole Blood Glucose 128H 06/28/20 05:47: POC Whole Blood Glucose 115H 06/28/20 06:53: POC Whole Blood Glucose 106 06/28/20 07:50: POC Whole Blood Glucose 129H 06/28/20 08:00: Sodium Level 132L, Potassium Level 3.6, Chloride Level 102, Carbon Dioxide Level 22, Anion Gap 8, Blood Urea Nitrogen 18, Creatinine 0.9, Estimat Glomerular Filtration Rate > 60, Glucose Level 134H, Calcium Level 8.3L 06/28/20 08:51: POC Whole Blood Glucose 173H 06/28/20 09:56: POC Whole Blood Glucose 65L Current Medications Medications (Trade) Dose Ordered Sig/Kalee Route PRN Reason Start Time Stop Time Status Last Admin Dose Admin Acetaminophen (Tylenol) 650 mg Q6H PRN ORAL For Headache 06/27/20 14:59 07/27/20 14:58 Dextrose (Dextrose 50%) 25 ml Q30M PRN IV HYPOGLYCEMIA 06/27/20 14:45 09/25/20 14:44 Dextrose (Dextrose 50%) 25 ml Q30M PRN IV Hypoglycemia 06/28/20 09:15 09/26/20 09:14 Dextrose (Dextrose 50%) 50 ml Q30M PRN IV HYPOGLYCEMIA 06/27/20 14:45 09/25/20 14:44 Dextrose (Dextrose 50%) 50 ml Q30M PRN IV Hypoglycemia 06/28/20 09:15 09/26/20 09:14 Dextrose/ Electrolytes 1,000 ml @ 150 mls/hr Q6H40M IV 06/27/20 16:00 07/27/20 15:59 06/28/20 05:16 Heparin Sodium (Porcine) (Heparin 5000 units/ml) 5,000 units EVERY 12 HOURS SUBQ 06/27/20 21:00 08/11/20 20:59 06/28/20 09:21 Insulin Aspart (NovoLOG) BEFORE MEALS AND HS SUBQ 06/28/20 11:30 09/26/20 11:29 Insulin Detemir (Levemir) 13 units Q24H SUBQ 06/28/20 10:00 09/26/20 09:59 Insulin Human (Reg)/Sodium Chloride 100 ml @ 0 mls/hr Q24H IV 06/27/20 20:34 06/28/20 11:30 06/28/20 04:14 Miscellaneous Medication (Insulin Rate Change) 1 ea PRN PRN MISC Hyperglycemia 06/27/20 14:45 09/25/20 14:44 Ondansetron HCl (Zofran) 4 mg Q6H PRN IVP Nausea & Vomiting 06/27/20 14:45 07/27/20 14:44 06/28/20 09:26 Pantoprazole (Protonix) 40 mg DAILY IV 06/28/20 09:00 07/28/20 08:59 06/28/20 09:02 Assessment/Plan Assessment/Plan IMPRESSION: 1. DKA. 2. Leukocytosis.Improved 3. Hypokalemia.Corrected DISCUSSION: Continue IV fluids. DVT prophylaxis. Insulin intravenously. I will follow carefully. No abx Mike Montez Omar Syed MD Jun 28, 2020 10:40
[2020-06-28] MEDS: NovoLOG Insulin Flexpen SUBQ SCH ×4 (11:03→21:53)
[2020-06-28 12:11] LABS: ANION GAP 8 mmol/L (5-15); BLOOD UREA NITROGEN 14 mg/dL (7-18); CALCIUM 8.1 MG/DL (8.5-10.1); CARBON DIOXIDE 24 MMOL/L (21-32); CHLORIDE 103 MMOL/L (98-107); CREATININE 0.8 MG/DL (0.55-1.30); POTASSIUM 3.2 MMOL/L (3.5-5.1); SODIUM 135 MMOL/L (136-145)
[2020-06-28] MEDS ORDERED: Tubing IV Secondary IV ONE (14:19)
[2020-06-28] MEDS ORDERED: NS 275ml ONE (14:19)
--- NOTE | 2020-06-28 14:54 | General Progress Note ---
Subjective Constitutional: Denies: no symptoms, chills, diaphoresis, fever, malaise, weakness, other HEENT: Denies: no symptoms, eye pain, blurred vision, tearing, double vision, ear pain, ear discharge, nose pain, nose congestion, throat pain, throat swelling, mouth pain, mouth swelling, other Cardiovascular: Denies: no symptoms, chest pain, edema, irregular heart rate, lightheadedness, palpitations, syncope, other Respiratory: Denies: no symptoms, cough, orthopnea, shortness of breath, SOB with excertion, SOB at rest, sputum, stridor, wheezing, other Gastrointestinal/Abdominal: Reports: nausea, poor appetite, poor fluid intake; Denies: no symptoms, abdomen distended, abdominal pain, black stools, tarry stools, blood in stool, constipated, diarrhea, difficulty swallowing, rectal bleeding, vomiting, other Genitourinary: Denies: no symptoms, burning, discharge, frequency, flank pain, hematuria, incontinence, pain, urgency, other Neurologic/Psychiatric: Denies: no symptoms, anxiety, depressed, emotional problems, headache, numbness, paresthesia, pre-existing deficit, seizure, tingling, tremors, weakness, other Endocrine: Denies: no symptoms, excessive sweating, flushing, intolerance to cold, intolerance to heat, increased hunger, increased thirst, increased urine, unexplained weight gain, unexplained weight loss, other Hematologic/Lymphatic: Denies: no symptoms, anemia, easy bleeding, easy bruising, other Allergies: Coded Allergies: No Known Allergies (Unverified , 06/27/20) Subjective No acute events overnight. Patient still nauseous and poor oral intake and appetite. Hemodynamically stable. Anion gap and acidosis closed. No new complaints Objective Last 24 Hour Vital Signs Date Time Temp Pulse Resp B/P (MAP) Pulse Ox O2 Delivery O2 Flow Rate FiO2 06/28/20 14:00 103 15 112/71 (85) 92 06/28/20 13:00 110 15 98/69 (79) 98 06/28/20 12:00 97.2 114 17 95/65 (75) 98 06/28/20 12:00 Room Air Room Air 06/28/20 11:49 113 06/28/20 11:00 102 16 110/75 (87) 99 06/28/20 10:00 119 21 104/70 (81) 98 06/28/20 09:00 110 16 101/74 (83) 99 06/28/20 08:00 98.4 112 17 112/75 (87) 99 06/28/20 08:00 Room Air Room Air 06/28/20 07:43 107 06/28/20 07:00 118 20 132/74 (93) 99 06/28/20 06:00 113 16 109/72 (84) 98 06/28/20 05:00 105 17 115/77 (90) 99 06/28/20 04:00 Room Air Room Air 06/28/20 04:00 98.4 108 16 110/76 (87) 98 06/28/20 03:01 109 06/28/20 03:00 114 17 108/77 (87) 98 06/28/20 02:00 127 21 111/84 (93) 98 06/28/20 01:00 115 16 119/79 (92) 97 06/28/20 00:00 97.5 126 17 101/61 (74) 98 06/28/20 00:00 Room Air Room Air 06/27/20 23:02 118 06/27/20 23:00 122 19 114/76 (89) 98 06/27/20 22:00 129 18 102/65 (77) 98 06/27/20 21:00 131 19 101/63 (76) 98 06/27/20 20:00 97.4 130 20 91/65 (74) 98 06/27/20 20:00 Room Air Room Air 06/27/20 19:43 130 06/27/20 19:30 132 19 109/72 (84) 96 06/27/20 19:00 130 21 98/67 (77) 98 06/27/20 18:30 133 20 103/72 (82) 98 06/27/20 18:00 129 20 106/72 (83) 99 06/27/20 17:30 125 19 115/96 (102) 100 06/27/20 17:00 126 22 120/86 (97) 100 06/27/20 16:30 128 23 106/68 (81) 98 06/27/20 16:00 Room Air 06/27/20 16:00 97.6 127 17 96/67 (77) 100 06/27/20 16:00 128 06/27/20 15:30 124 16 104/63 (77) 98 06/27/20 15:00 132 21 107/67 (80) 99 Intake and Output 06/27/20 06/28/20 19:00 07:00 Intake Total 660 ml 2775.933 ml Output Total 120 ml 1400 ml Balance 540 ml 1375.933 ml Intake Oral 510 ml 944 ml IV Total 150 ml 1831.933 ml Output Urine Total 1400 ml Emesis 120 ml # Voids 7 Laboratory Tests 06/27/20 15:45: Sodium Level 134L, Potassium Level 4.2#, Chloride Level 95L, Carbon Dioxide Lev el 11L, Anion Gap 28H, Blood Urea Nitrogen 36H, Creatinine 1.5H, Estimat Glomerular Filtration Rate 51.3, Glucose Level 464#H, Hemoglobin A1c 10.5H, Calcium Level 8.6 06/27/20 16:23: POC Whole Blood Glucose [Pending] 06/27/20 17:44: POC Whole Blood Glucose [Pending] 06/27/20 19:00: POC Whole Blood Glucose [Pending] 06/27/20 19:51: POC Whole Blood Glucose [Pending] 06/27/20 20:00: Sodium Level 133L, Potassium Level 3.3L, Chloride Level 99, Carbon Dioxide Level 14L, Blood Urea Nitrogen 30H, Creatinine 1.4H, Estimat Glomerular Filtration Rate 55.6, Glucose Level 228#H, Calcium Level 8.6 06/27/20 20:53: POC Whole Blood Glucose 184H 06/27/20 21:50: POC Whole Blood Glucose 165H 06/27/20 22:48: POC Whole Blood Glucose 146H 06/27/20 23:42: POC Whole Blood Glucose [Pending] 06/27/20 23:45: Sodium Level 135L, Potassium Level 3.6, Chloride Level 103, Carbon Dioxide Level 20L, Anion Gap 12, Blood Urea Nitrogen 25H, Creatinine 1.2, Estimat Glomerular Filtration Rate > 60, Glucose Level 141H, Calcium Level 8.5 06/28/20 00:52: POC Whole Blood Glucose 142H 06/28/20 01:55: POC Whole Blood Glucose 106 06/28/20 02:53: POC Whole Blood Glucose 114H 06/28/20 03:45: White Blood Count 14.5H, Red Blood Count 4.56L, Hemoglobin 14.4, Hematocrit 41.1L, Mean Corpuscular Volume 90#, Mean Corpuscular Hemoglobin 31.7H, Mean Corpuscular Hemoglobin Concent 35.1, Red Cell Distribution Width 11.6, Platelet Count 242, Mean Platelet Volume 7.1, Neutrophils (%) (Auto) 84.6H, Lymphocytes (%) (Auto) 6.3L, Monocytes (%) (Auto) 7.9, Eosinophils (%) (Auto) 0.0, Basophils (%) (Auto) 1.2, Sodium Level 133L, Potassium Level 3.5, Chloride Level 102, Carbon Dioxide Level 22, Anion Gap 9, Blood Urea Nitrogen 23H, Creatinine 1.1, Estimat Glomerular Filtration Rate > 60, Glucose Level 132H, Calcium Level 7.9L 06/28/20 04:52: POC Whole Blood Glucose 128H 06/28/20 05:47: POC Whole Blood Glucose 115H 06/28/20 06:53: POC Whole Blood Glucose 106 06/28/20 07:50: POC Whole Blood Glucose 129H 06/28/20 08:00: Sodium Level 132L, Potassium Level 3.6, Chloride Level 102, Carbon Dioxide Level 22, Anion Gap 8, Blood Urea Nitrogen 18, Creatinine 0.9, Estimat Glomerular Filtration Rate > 60, Glucose Level 134H, Calcium Level 8.3L 06/28/20 08:51: POC Whole Blood Glucose 173H 06/28/20 09:56: POC Whole Blood Glucose 65L 06/28/20 11:50: Sodium Level 135L, Potassium Level 3.2L, Chloride Level 103, Carbon Dioxide Level 24, Anion Gap 8, Blood Urea Nitrogen 14, Creatinine 0.8, Estimat Glomerular Filtration Rate > 60, Glucose Level 167H, Calcium Level 8.1L Height (Feet): 5 Height (Inches): 6.00 Weight (Pounds): 140 General Appearance: alert, mild distress, alert oriented x3 EENT: PERRL/EOMI Neck: non-tender, normal alignment Cardiovascular: normal rate, regular rhythm, no JVD Respiratory/Chest: lungs clear, normal breath sounds, respiratory distress Abdomen: non tender, soft Extremities: normal range of motion, non-tender Edema: no edema noted Arm (L), no edema noted Arm (R), no edema noted Leg (L), no edema noted Leg (R), no edema noted Pedal (L), no edema noted Pedal (R), no edema noted Generalized Neurologic: inspector rag sorting II-XII grossly normal, alert, oriented x 3 Skin: normal pigmentation, warm/dry Assessment/Plan Assessment/Plan: A: # DKA # T2DM # Nausea/Vomiting # Hypokalemia # ERICKA 2/2 prerenal azotemiaresolved # Pseudohyponatremia secondary to hyperglycemia # Marijuana dependence P: Gap and acidosis now closed. Initial glucose over 900, pH 7.24 on VBG, anion gap 32, urine ketone positive, severe hypokalemia now admitted to ICU. s/p 5 units IV insulin in ED and IVF boluses. - A1c: 10.5 - IVF with KCl - Insulin drip discontinued Started Levemir 0.1 mg/kg Started aggressive insulin sliding scale Blood glucose levels goal 140-1 80 Advance diet as tolerated Hypoglycemic protocols We will downgrade later today from the ICU after further monitoring - Endocrinology consult porsche Nogueira appreciated - Pulmonology consult porsche Schultz appreciated Diet: low carb DVT ppx: heparin subQ Code status: Full Dispo: likely home in 1-2 days pending symptomatic improvement and maintenance of anion gap closure/transition to subQ insulin Time spent on this encounter was 43 minutes which included 25 minutes of counseling and care coordination. I discussed with the nurse at bedside. Time of note may not reflect time patient was seen. Robert Pagan D.O Jun 28, 2020 14:54
--- NOTE | 2020-06-28 18:06 | General Progress Note ---
Subjective Allergies: Coded Allergies: No Known Allergies (Unverified , 06/27/20) All Systems: reviewed and negative except above Subjective events noted interval notes reviewed DKA resolved glucose values improved Item Value Date Time Bedside Blood Glucose 309 mg/dl H 06/28/20 1630 Bedside Blood Glucose 182 mg/dl H 06/28/20 1154 Bedside Blood Glucose 127 mg/dl H 06/28/20 1048 Bedside Blood Glucose 106 mg/dl 06/28/20 0650 Bedside Blood Glucose 114 mg/dl 06/28/20 0250 Bedside Blood Glucose 146 mg/dl H 06/27/20 2250 Bedside Blood Glucose 277 mg/dl H 06/27/20 1848 Objective Last 24 Hour Vital Signs Date Time Temp Pulse Resp B/P (MAP) Pulse Ox O2 Delivery O2 Flow Rate FiO2 06/28/20 16:00 Room Air Room Air 06/28/20 16:00 98.4 95 15 123/83 (96) 99 06/28/20 15:17 111 06/28/20 15:00 106 15 108/69 (82) 100 06/28/20 14:00 103 15 112/71 (85) 92 06/28/20 13:00 110 15 98/69 (79) 98 06/28/20 12:00 97.2 114 17 95/65 (75) 98 06/28/20 12:00 Room Air Room Air 06/28/20 11:49 113 06/28/20 11:00 102 16 110/75 (87) 99 06/28/20 10:00 119 21 104/70 (81) 98 06/28/20 09:00 110 16 101/74 (83) 99 06/28/20 08:00 98.4 112 17 112/75 (87) 99 06/28/20 08:00 Room Air Room Air 06/28/20 07:43 107 06/28/20 07:00 118 20 132/74 (93) 99 06/28/20 06:00 113 16 109/72 (84) 98 06/28/20 05:00 105 17 115/77 (90) 99 06/28/20 04:00 Room Air Room Air 06/28/20 04:00 98.4 108 16 110/76 (87) 98 06/28/20 03:01 109 06/28/20 03:00 114 17 108/77 (87) 98 06/28/20 02:00 127 21 111/84 (93) 98 06/28/20 01:00 115 16 119/79 (92) 97 06/28/20 00:00 97.5 126 17 101/61 (74) 98 06/28/20 00:00 Room Air Room Air 06/27/20 23:02 118 06/27/20 23:00 122 19 114/76 (89) 98 06/27/20 22:00 129 18 102/65 (77) 98 06/27/20 21:00 131 19 101/63 (76) 98 06/27/20 20:00 97.4 130 20 91/65 (74) 98 06/27/20 20:00 Room Air Room Air 06/27/20 19:43 130 06/27/20 19:30 132 19 109/72 (84) 96 06/27/20 19:00 130 21 98/67 (77) 98 06/27/20 18:30 133 20 103/72 (82) 98 Intake and Output 06/27/20 06/28/20 19:00 07:00 Intake Total 660 ml 2775.933 ml Output Total 120 ml 1400 ml Balance 540 ml 1375.933 ml Intake Oral 510 ml 944 ml IV Total 150 ml 1831.933 ml Output Urine Total 1400 ml Emesis 120 ml # Voids 7 Laboratory Tests 06/27/20 19:00: POC Whole Blood Glucose [Pending] 06/27/20 19:51: POC Whole Blood Glucose [Pending] 06/27/20 20:00: Sodium Level 133L, Potassium Level 3.3L, Chloride Level 99, Carbon Dioxide Level 14L, Blood Urea Nitrogen 30H, Creatinine 1.4H, Estimat Glomerular Filtration Rate 55.6, Glucose Level 228#H, Calcium Level 8.6 06/27/20 20:53: POC Whole Blood Glucose 184H 06/27/20 21:50: POC Whole Blood Glucose 165H 06/27/20 22:48: POC Whole Blood Glucose 146H 06/27/20 23:42: POC Whole Blood Glucose [Pending] 06/27/20 23:45: Sodium Level 135L, Potassium Level 3.6, Chloride Level 103, Carbon Dioxide Level 20L, Anion Gap 12, Blood Urea Nitrogen 25H, Creatinine 1.2, Estimat Glomerular Filtration Rate > 60, Glucose Level 141H, Calcium Level 8.5 06/28/20 00:52: POC Whole Blood Glucose 142H 06/28/20 01:55: POC Whole Blood Glucose 106 06/28/20 02:53: POC Whole Blood Glucose 114H 06/28/20 03:45: White Blood Count 14.5H, Red Blood Count 4.56L, Hemoglobin 14.4, Hematocrit 41.1L, Mean Corpuscular Volume 90#, Mean Corpuscular Hemoglobin 31.7H, Mean Corpuscular Hemoglobin Concent 35.1, Red Cell Distribution Width 11.6, Platelet Count 242, Mean Platelet Volume 7.1, Neutrophils (%) (Auto) 84.6H, Lymphocytes (%) (Auto) 6.3L, Monocytes (%) (Auto) 7.9, Eosinophils (%) (Auto) 0.0, Basophils (%) (Auto) 1.2, Sodium Level 133L, Potassium Level 3.5, Chloride Level 102, Carbon Dioxide Level 22, Anion Gap 9, Blood Urea Nitrogen 23H, Creatinine 1.1, Estimat Glomerular Filtration Rate > 60, Glucose Level 132H, Calcium Level 7.9L 06/28/20 04:52: POC Whole Blood Glucose 128H 06/28/20 05:47: POC Whole Blood Glucose 115H 06/28/20 06:53: POC Whole Blood Glucose 106 06/28/20 07:50: POC Whole Blood Glucose 129H 06/28/20 08:00: Sodium Level 132L, Potassium Level 3.6, Chloride Level 102, Carbon Dioxide Level 22, Anion Gap 8, Blood Urea Nitrogen 18, Creatinine 0.9, Estimat Glomerular Filtration Rate > 60, Glucose Level 134H, Calcium Level 8.3L 06/28/20 08:51: POC Whole Blood Glucose 173H 06/28/20 09:56: POC Whole Blood Glucose 65L 06/28/20 11:50: Sodium Level 135L, Potassium Level 3.2L, Chloride Level 103, Carbon Dioxide Level 24, Anion Gap 8, Blood Urea Nitrogen 14, Creatinine 0.8, Estimat Glomerular Filtration Rate > 60, Glucose Level 167H, Calcium Level 8.1L Height (Feet): 5 Height (Inches): 6.00 Weight (Pounds): 140 General Appearance: no apparent distress Neck: normal alignment Cardiovascular: normal rate Respiratory/Chest: lungs clear Abdomen: normal bowel sounds Objective Current Medications Medications (Trade) Dose Ordered Sig/Kalee Route PRN Reason Start Time Stop Time Status Last Admin Dose Admin Acetaminophen (Tylenol) 650 mg Q6H PRN ORAL For Headache 06/27/20 14:59 07/27/20 14:58 Dextrose (Dextrose 50%) 25 ml Q30M PRN IV Hypoglycemia 06/28/20 09:15 09/26/20 09:14 Dextrose (Dextrose 50%) 50 ml Q30M PRN IV Hypoglycemia 06/28/20 09:15 09/26/20 09:14 Dextrose/ Electrolytes 1,000 ml @ 150 mls/hr Q6H40M IV 06/27/20 16:00 07/27/20 15:59 06/28/20 11:53 Heparin Sodium (Porcine) (Heparin 5000 units/ml) 5,000 units EVERY 12 HOURS SUBQ 06/27/20 21:00 08/11/20 20:59 06/28/20 09:21 Insulin Aspart (NovoLOG) BEFORE MEALS AND HS SUBQ 06/28/20 11:30 09/26/20 11:29 06/28/20 16:14 Insulin Detemir (Levemir) 13 units Q24H SUBQ 06/28/20 10:00 09/26/20 09:59 06/28/20 11:02 Ondansetron HCl (Zofran) 4 mg Q6H PRN IVP Nausea & Vomiting 06/27/20 14:45 07/27/20 14:44 06/28/20 09:26 Pantoprazole (Protonix) 40 mg DAILY IV 06/28/20 09:00 07/28/20 08:59 06/28/20 09:02 Assessment/Plan Problem List: (1) DKA, type 2 ICD Codes: E11.10 - Type 2 diabetes mellitus with ketoacidosis without coma SNOMED: 331563948, 27780202 (2) Hyponatremia ICD Codes: E87.1 - Hypo-osmolality and hyponatremia SNOMED: 14361751, 76599139 (3) Hypokalemia ICD Codes: E87.6 - Hypokalemia SNOMED: 43637777, 21610992 (4) Dehydration ICD Codes: E86.0 - Dehydration SNOMED: 82830301, [id number] Assessment/Plan: adjusted Levemir to 18 units daily add Novolog 6 units ac tid continue Novolog sliding scale ac / hs he will stay on insulin after discharge Naman Parisi MD Jun 28, 2020 18:06
[2020-06-29] VITALS (8 sets, daily range): BP systolic 93–130; BP diastolic 50–97
[2020-06-29] MEDS: D5 1/2NS w/KCl 20mEq 1,000 ML IV SCH ×2 (00:44→08:14)
[2020-06-29] MEDS: NovoLOG Insulin Flexpen SUBQ SCH ×7 (06:24→21:00)
--- NOTE | 2020-06-29 06:27 | General Progress Note ---
Subjective Allergies: Coded Allergies: No Known Allergies (Unverified , 06/27/20) All Systems: reviewed and negative except above Subjective events noted interval notes reviewed glucose values elevated Item Value Date Time Bedside Blood Glucose 317 mg/dl H 06/28/20 2153 Bedside Blood Glucose 309 mg/dl H 06/28/20 1630 Bedside Blood Glucose 182 mg/dl H 06/28/20 1154 Bedside Blood Glucose 127 mg/dl H 06/28/20 1048 Bedside Blood Glucose 106 mg/dl 06/28/20 0650 Bedside Blood Glucose 114 mg/dl 06/28/20 0250 Objective Last 24 Hour Vital Signs Date Time Temp Pulse Resp B/P (MAP) Pulse Ox O2 Delivery O2 Flow Rate FiO2 06/29/20 04:00 Room Air Room Air 06/29/20 04:00 98.2 105 16 114/72 (86) 99 06/29/20 04:00 102 06/29/20 00:00 Room Air Room Air 06/29/20 00:00 98.2 103 15 130/68 (88) 99 06/29/20 00:00 114 06/28/20 20:00 104 06/28/20 20:00 98.2 101 15 108/76 (87) 99 06/28/20 20:00 Room Air Room Air 06/28/20 16:00 Room Air Room Air 06/28/20 16:00 98.4 95 15 123/83 (96) 99 06/28/20 15:17 111 06/28/20 15:00 106 15 108/69 (82) 100 06/28/20 14:00 103 15 112/71 (85) 92 06/28/20 13:00 110 15 98/69 (79) 98 06/28/20 12:00 97.2 114 17 95/65 (75) 98 06/28/20 12:00 Room Air Room Air 06/28/20 11:49 113 06/28/20 11:00 102 16 110/75 (87) 99 06/28/20 10:00 119 21 104/70 (81) 98 06/28/20 09:00 110 16 101/74 (83) 99 06/28/20 08:00 98.4 112 17 112/75 (87) 99 06/28/20 08:00 Room Air Room Air 06/28/20 07:43 107 06/28/20 07:00 118 20 132/74 (93) 99 Intake and Output 06/28/20 06/29/20 19:00 07:00 Intake Total 2209.5 ml 1350 ml Output Total 1100 ml 300 ml Balance 1109.5 ml 1050 ml Intake Oral 800 ml IV Total 1409.5 ml 1350 ml Output Urine Total 1100 ml 300 ml # Voids 3 Laboratory Tests 06/28/20 06:53: POC Whole Blood Glucose 106 06/28/20 07:50: POC Whole Blood Glucose 129H 06/28/20 08:00: Sodium Level 132L, Potassium Level 3.6, Chloride Level 102, Carbon Dioxide Level 22, Anion Gap 8, Blood Urea Nitrogen 18, Creatinine 0.9, Estimat Glomerular Filtration Rate > 60, Glucose Level 134H, Calcium Level 8.3L 06/28/20 08:51: POC Whole Blood Glucose 173H 06/28/20 09:56: POC Whole Blood Glucose 65L 06/28/20 11:50: Sodium Level 135L, Potassium Level 3.2L, Chloride Level 103, Carbon Dioxide Level 24, Anion Gap 8, Blood Urea Nitrogen 14, Creatinine 0.8, Estimat Glom erular Filtration Rate > 60, Glucose Level 167H, Calcium Level 8.1L 06/28/20 21:49: POC Whole Blood Glucose [Pending] Height (Feet): 5 Height (Inches): 6.00 Weight (Pounds): 140 General Appearance: no apparent distress Neck: normal alignment Cardiovascular: normal rate Respiratory/Chest: lungs clear Abdomen: normal bowel sounds Pelvis: normal external exam Objective Current Medications Medications (Trade) Dose Ordered Sig/Kalee Route PRN Reason Start Time Stop Time Status Last Admin Dose Admin Acetaminophen (Tylenol) 650 mg Q6H PRN ORAL For Headache 06/27/20 14:59 07/27/20 14:58 Dextrose (Dextrose 50%) 25 ml Q30M PRN IV Hypoglycemia 06/28/20 09:15 09/26/20 09:14 Dextrose (Dextrose 50%) 25 ml Q30M PRN IV Hypoglycemia 06/28/20 18:00 09/26/20 17:59 Dextrose (Dextrose 50%) 50 ml Q30M PRN IV Hypoglycemia 06/28/20 09:15 09/26/20 09:14 Dextrose (Dextrose 50%) 50 ml Q30M PRN IV Hypoglycemia 06/28/20 18:00 09/26/20 17:59 Dextrose/ Electrolytes 1,000 ml @ 150 mls/hr Q6H40M IV 06/27/20 16:00 07/27/20 15:59 06/29/20 00:44 Heparin Sodium (Porcine) (Heparin 5000 units/ml) 5,000 units EVERY 12 HOURS SUBQ 06/27/20 21:00 08/11/20 20:59 06/28/20 21:52 Insulin Aspart (NovoLOG) BEFORE MEALS AND HS SUBQ 06/28/20 11:30 09/26/20 11:29 06/28/20 21:53 Insulin Aspart (NovoLOG) 6 units NOVOTIAC SUBQ 06/29/20 06:30 09/27/20 06:29 Insulin Detemir (Levemir) 16 units DAILY SUBQ 06/29/20 09:00 09/26/20 09:59 Ondansetron HCl (Zofran) 4 mg Q6H PRN IVP Nausea & Vomiting 06/27/20 14:45 07/27/20 14:44 06/28/20 09:26 Pantoprazole (Protonix) 40 mg DAILY IV 06/28/20 09:00 07/28/20 08:59 06/28/20 09:02 Assessment/Plan Problem List: (1) DKA, type 2 ICD Codes: E11.10 - Type 2 diabetes mellitus with ketoacidosis without coma SNOMED: 256140699, 21848168 (2) Hyponatremia ICD Codes: E87.1 - Hypo-osmolality and hyponatremia SNOMED: 47984056, 97557088 (3) Hypokalemia ICD Codes: E87.6 - Hypokalemia SNOMED: 41377468, 15476701 (4) Dehydration ICD Codes: E86.0 - Dehydration SNOMED: 83055072, 28181340 Assessment/Plan: Levemir 18 units daily Novolog 6 units ac tid continue Novolog sliding scale ac / hs he will stay on insulin after discharge Naman Parisi MD Jun 29, 2020 06:27
[2020-06-29 07:41] LABS: HEMOGLOBIN 14.1 G/DL (14.2-18.0); MEAN CORPUSCULAR VOLUME 94 FL (80-99); PLATELET COUNT 201 K/UL (150-450); RED BLOOD COUNT 4.38 M/UL (4.70-6.10); RED CELL DISTRIBUTION WIDTH 11.6 % (11.6-14.8); WHITE BLOOD COUNT 10.6 K/UL (4.8-10.8)
[2020-06-29] MEDS: Pantoprazole Inj IV SCH (08:18)
[2020-06-29] MEDS: Heparin 5000 units/ml inj SUBQ SCH ×2 (08:22→21:43)
[2020-06-29] MEDS: Levemir Flexpen SUBQ SCH (08:24)
[2020-06-29 08:26] LABS: ANION GAP 9 mmol/L (5-15); BLOOD UREA NITROGEN 7 mg/dL (7-18); CALCIUM 8.4 MG/DL (8.5-10.1); CARBON DIOXIDE 25 MMOL/L (21-32); CHLORIDE 100 MMOL/L (98-107); CREATININE 0.5 MG/DL (0.55-1.30); POTASSIUM 3.4 MMOL/L (3.5-5.1); SODIUM 134 MMOL/L (136-145)
[2020-06-29] MEDS ORDERED: Levemir Flexpen SUBQ SCH (09:00)
--- NOTE | 2020-06-29 09:45 | General Progress Note ---
Subjective Constitutional: Reports: weakness HEENT: Denies: no symptoms, eye pain, blurred vision, tearing, double vision, ear pain, ear discharge, nose pain, nose congestion, throat pain, throat swel ling, mouth pain, mouth swelling, other Cardiovascular: Denies: no symptoms, chest pain, edema, irregular heart rate, lightheadedness, palpitations, syncope, other Respiratory: Denies: no symptoms, cough, orthopnea, shortness of breath, SOB with excertion, SOB at rest, sputum, stridor, wheezing, other Gastrointestinal/Abdominal: Denies: no symptoms, abdomen distended, abdominal pain, black stools, tarry stools, blood in stool, constipated, diarrhea, difficulty swallowing, nausea, poor appetite, poor fluid intake, rectal bleeding, vomiting, other Genitourinary: Denies: no symptoms, burning, discharge, frequency, flank pain, hematuria, incontinence, pain, urgency, other Neurologic/Psychiatric: Denies: no symptoms, anxiety, depressed, emotional problems, headache, numbness, paresthesia, pre-existing deficit, seizure, tingling, tremors, weakness, other Endocrine: Denies: no symptoms, excessive sweating, flushing, intolerance to cold, intolerance to heat, increased hunger, increased thirst, increased urine, unexplained weight gain, unexplained weight loss, other Hematologic/Lymphatic: Denies: no symptoms, anemia, easy bleeding, easy bruising, other Allergies: Coded Allergies: No Known Allergies (Unverified , 06/27/20) Subjective No acute events overnight. Patient Dunklee from the ICU last night. Patient feels better this morning. However still feels weak. Appetite is slowly improving. Objective Last 24 Hour Vital Signs Date Time Temp Pulse Resp B/P (MAP) Pulse Ox O2 Delivery O2 Flow Rate FiO2 06/29/20 04:00 Room Air Room Air 06/29/20 04:00 98.2 105 16 114/72 (86) 99 06/29/20 04:00 102 06/29/20 00:00 Room Air Room Air 06/29/20 00:00 98.2 103 15 130/68 (88) 99 06/29/20 00:00 114 06/28/20 20:00 104 06/28/20 20:00 98.2 101 15 108/76 (87) 99 06/28/20 20:00 Room Air Room Air 06/28/20 16:00 Room Air Room Air 06/28/20 16:00 98.4 95 15 123/83 (96) 99 06/28/20 15:17 111 06/28/20 15:00 106 15 108/69 (82) 100 06/28/20 14:00 103 15 112/71 (85) 92 06/28/20 13:00 110 15 98/69 (79) 98 06/28/20 12:00 97.2 114 17 95/65 (75) 98 06/28/20 12:00 Room Air Room Air 06/28/20 11:49 113 06/28/20 11:00 102 16 110/75 (87) 99 06/28/20 10:00 119 21 104/70 (81) 98 Intake and Output 06/28/20 06/29/20 19:00 07:00 Intake Total 2209.5 ml 1800 ml Output Total 1100 ml 300 ml Balance 1109.5 ml 1500 ml Intake Oral 800 ml IV Total 1409.5 ml 1800 ml Output Urine Total 1100 ml 300 ml # Voids 3 Laboratory Tests 06/28/20 09:56: POC Whole Blood Glucose 65L 06/28/20 11:50: Sodium Level 135L, Potassium Level 3.2L, Chloride Level 103, Carbon Dioxide Level 24, Anion Gap 8, Blood Urea Nitrogen 14, Creatinine 0.8, Estimat Glomerular Filtration Rate > 60, Glucose Level 167H, Calcium Level 8.1L 06/28/20 21:49: POC Whole Blood Glucose [Pending] 06/29/20 06:20: POC Whole Blood Glucose [Pending] 06/29/20 06:56: White Blood Count 10.6, Red Blood Count 4.38L, Hemoglobin 14.1L, Hematocrit 41.0L, Mean Corpuscular Volume 94, Mean Corpuscular Hemoglobin 32.1H, Mean Corpuscular Hemoglobin Concent 34.3, Red Cell Distribution Width 11.6, Platelet Count 201, Mean Platelet Volume 7.3, Neutrophils (%) (Auto) , Lymphocytes (%) (Auto) , Monocytes (%) (Auto) , Eosinophils (%) (Auto) , Basophils (%) (Auto) , Neutrophils % (Manual) [Pending], Lymphocytes % (Manual) [Pending], Platelet Estimate [Pending], Platelet Morphology [Pending], Sodium Level 134L, Potassium Level 3.4L, Chloride Level 100, Carbon Dioxide Level 25, Anion Gap 9, Blood Urea Nitrogen 7, Creatinine 0.5L, Estimat Glomerular Filtration Rate > 60, Glucose Level 310#H, Calcium Level 8.4L, Magnesium Level 2.2 Height (Feet): 5 Height (Inches): 6.00 Weight (Pounds): 140 General Appearance: no apparent distress, mild distress, alert oriented x3 EENT: PERRL/EOMI Neck: non-tender, normal inspection Cardiovascular: normal rate, regular rhythm, no JVD Respiratory/Chest: lungs clear, normal breath sounds, respiratory distress Abdomen: normal bowel sounds, non tender, soft Extremities: normal range of motion, non-tender Edema: no edema noted Arm (L), no edema noted Arm (R), no edema noted Leg (L), no edema noted Leg (R), no edema noted Pedal (L), no edema noted Pedal (R), no edema noted 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 Initial glucose over 900, pH 7.24 on VBG, anion gap 32, urine ketone positive, severe hypokalemia now admitted to ICU. s/p 5 units IV insulin in ED and IVF boluses. - A1c: 10.5 - IVF with KCl -Continue Levemir 18 units Continue premeal insulin 6 units Started aggressive insulin sliding scale Blood glucose levels goal 140-1 80 Advance diet as tolerated Hypoglycemic protocols Downgrade from the ICU last night, feeling better this morning, however still feels weak appetite is improving - Endocrinology consult angelito Nogueiras appreciated - Pulmonology consult porsche Schultz appreciated Diet: low carb DVT ppx: heparin subQ Code status: Full Dispo: Discharge tomorrow Time spent on this encounter was 41 minutes which included 23 minutes of counseling and care coordination. I discussed with the nurse at bedside. Time of note may not reflect time patient was seen. Robert Pagan D.O Jun 29, 2020 09:45
--- NOTE | 2020-06-29 11:08 | Pulmonology Progress Note ---
Subjective Interval Events: Off insulin gtt; transferred ouit of iCU Constitutional: Reports: no symptoms HEENT: Repors: no symptoms Respiratory: Reports: no symptoms Cardiovascular: Reports: no symptoms Gastrointestinal/Abdominal: Reports: no symptoms Allergies: Coded Allergies: No Known Allergies (Unverified , 06/27/20) All Systems: reviewed and negative except above Objective Last 24 Hour Vital Signs Date Time Temp Pulse Resp B/P (MAP) Pulse Ox O2 Delivery O2 Flow Rate FiO2 06/29/20 10:22 98.7 100 19 115/79 (91) 100 06/29/20 08:00 115 06/29/20 08:00 Room Air Room Air 06/29/20 08:00 98.7 100 16 115/79 (91) 99 06/29/20 04:00 Room Air Room Air 06/29/20 04:00 98.2 105 16 114/72 (86) 99 06/29/20 04:00 102 06/29/20 00:00 Room Air Room Air 06/29/20 00:00 98.2 103 15 130/68 (88) 99 06/29/20 00:00 114 06/28/20 20:00 104 06/28/20 20:00 98.2 101 15 108/76 (87) 99 06/28/20 20:00 Room Air Room Air 06/28/20 16:00 Room Air Room Air 06/28/20 16:00 98.4 95 15 123/83 (96) 99 06/28/20 15:17 111 06/28/20 15:00 106 15 108/69 (82) 100 06/28/20 14:00 103 15 112/71 (85) 92 06/28/20 13:00 110 15 98/69 (79) 98 06/28/20 12:00 97.2 114 17 95/65 (75) 98 06/28/20 12:00 Room Air Room Air 06/28/20 11:49 113 l Intake and Output 06/28/20 06/29/20 19:00 07:00 Intake Total 2209.5 ml 1800 ml Output Total 1100 ml 300 ml Balance 1109.5 ml 1500 ml Intake Oral 800 ml IV Total 1409.5 ml 1800 ml Output Urine Total 1100 ml 300 ml # Voids 3 General Appearance: no acute distress HEENT: normocephalic Respiratory: chest wall non-tender, lungs clear Cardiovascular: normal peripheral pulses, normal rate Abdomen: normal bowel sounds, soft, non tender Extremities: no cyanosis Microbiology Date/Time Source Procedure Growth Status 06/27/20 23:45 Blood Blood Culture - Preliminary NO GROWTH AFTER 24 HOURS Resulted 06/27/20 11:27 Rectum - Final NO CARBAPENEM-RESISTANT ENTEROBACTERI... Complete 06/27/20 11:27 Rectum VRE Culture - Final NO VANCOMYCIN RESISTANT ENTEROCOCCUS ... Complete 06/27/20 11:27 Nasal Nares MRSA Culture - Final NO METHICILLIN RESISTANT STAPH AUREUS... Complete 06/27/20 06:30 Blood Blood Culture - Preliminary NO GROWTH AFTER 24 HOURS Resulted Laboratory Tests 06/28/20 11:50: Sodium Level 135L, Potassium Level 3.2L, Chloride Level 103, Carbon Dioxide Level 24, Anion Gap 8, Blood Urea Nitrogen 14, Creatinine 0.8, Estimat Glomeru lar Filtration Rate > 60, Glucose Level 167H, Calcium Level 8.1L 06/28/20 21:49: POC Whole Blood Glucose [Pending] 06/29/20 06:20: POC Whole Blood Glucose [Pending] 06/29/20 06:56: Sodium Level 134L, Potassium Level 3.4L, Chloride Level 100, Carbon Dioxide Level 25, Anion Gap 9, Blood Urea Nitrogen 7, Creatinine 0.5L, Estimat Glomerular Filtration Rate > 60, Glucose Level 310#H, Calcium Level 8.4L, White Blood Count 10.6, Red Blood Count 4.38L, Hemoglobin 14.1L, Hematocrit 41.0L, Mean Corpuscular Volume 94, Mean Corpuscular Hemoglobin 32.1H, Mean Corpuscular Hemoglobin Concent 34.3, Red Cell Distribution Width 11.6, Platelet Count 201, Mean Platelet Volume 7.3, Neutrophils (%) (Auto) , Lymphocytes (%) (Auto) , Monocytes (%) (Auto) , Eosinophils (%) (Auto) , Basophils (%) (Auto) , Differential Total Cells Counted 100, Neutrophils % (Manual) 85H, Lymphocytes % (Manual) 8L, Monocytes % (Manual) 5, Eosinophils % (Manual) 0, Basophils % (Manual) 0, Band Neutrophils 2, Platelet Estimate Adequate, Platelet Morphology Normal, Red Blood Cell Morphology Normal, Magnesium Level 2.2 Current Medications Medications (Trade) Dose Ordered Sig/Kalee Route PRN Reason Start Time Stop Time Status Last Admin Dose Admin Acetaminophen (Tylenol) 650 mg Q6H PRN ORAL For Headache 06/27/20 14:59 07/27/20 14:58 Dextrose (Dextrose 50%) 25 ml Q30M PRN IV Hypoglycemia 06/28/20 18:00 09/26/20 17:59 Dextrose (Dextrose 50%) 50 ml Q30M PRN IV Hypoglycemia 06/28/20 18:00 09/26/20 17:59 Heparin Sodium (Porcine) (Heparin 5000 units/ml) 5,000 units EVERY 12 HOURS SUBQ 06/27/20 21:00 08/11/20 20:59 06/29/20 08:22 Insulin Aspart (NovoLOG) BEFORE MEALS AND HS SUBQ 06/28/20 11:30 09/26/20 11:29 06/29/20 06:24 Insulin Aspart (NovoLOG) 6 units NOVOTIAC SUBQ 06/29/20 06:30 09/27/20 06:29 06/29/20 06:25 Insulin Detemir (Levemir) 18 units DAILY SUBQ 06/29/20 09:00 09/26/20 09:59 06/29/20 08:24 Lactated Ringer's 1,000 ml @ 75 mls/hr [id number] IV 06/29/20 11:00 07/29/20 10:59 Ondansetron HCl (Zofran) 4 mg Q6H PRN IVP Nausea & Vomiting 06/27/20 14:45 07/27/20 14:44 06/28/20 09:26 Pantoprazole (Protonix) 40 mg DAILY IV 06/28/20 09:00 07/28/20 08:59 06/29/20 08:18 Assessment/Plan Assessment/Plan IMPRESSION: 1. DKA. 2. Leukocytosis.Improved 3. Hypokalemia.Corrected DISCUSSION: Continue IV fluids. DVT prophylaxis. Insulin subcut I will sign off Mike Montez Omar Syed MD Jun 29, 2020 11:08
[2020-06-29] MEDS: LR 1000ml 1,000 ML IV SCH (11:37)
[2020-06-30] MEDS: LR 1000ml 1,000 ML IV SCH (00:20)
[2020-06-30 04:00] VITALS: BP 120/83
[2020-06-30] MEDS: NovoLOG Insulin Flexpen SUBQ SCH ×4 (06:13→11:33)
--- NOTE | 2020-06-30 06:24 | General Progress Note ---
Subjective Allergies: Coded Allergies: No Known Allergies (Unverified , 06/27/20) All Systems: reviewed and negative except above Subjective events noted interval notes reviewed fasting glucose elevated mealtime glucose improved Item Value Date Time Bedside Blood Glucose 263 mg/dl H 06/30/20 0616 Bedside Blood Glucose 128 mg/dl H 06/29/20 2115 Bedside Blood Glucose 126 mg/dl H 06/29/20 1650 Bedside Blood Glucose 202 mg/dl H 06/29/20 1143 Bedside Blood Glucose 259 mg/dl H 06/29/20 0824 Bedside Blood Glucose 259 mg/dl H 06/29/20 0630 Objective Last 24 Hour Vital Signs Date Time Temp Pulse Resp B/P (MAP) Pulse Ox O2 Delivery O2 Flow Rate FiO2 06/30/20 04:00 97 06/30/20 00:00 115 06/29/20 23:51 98.8 114 18 97/50 (66) 98 06/29/20 23:39 Room Air Room Air 06/29/20 20:00 98.1 108 18 93/56 (68) 96 06/29/20 20:00 105 06/29/20 16:00 Room Air Room Air 06/29/20 16:00 101 06/29/20 16:00 96.6 99 20 118/68 (85) 100 06/29/20 12:00 Room Air Room Air 06/29/20 12:00 106 06/29/20 12:00 97.8 100 20 117/97 (104) 100 06/29/20 10:22 98.7 100 19 115/79 (91) 100 06/29/20 08:00 115 06/29/20 08:00 Room Air Room Air 06/29/20 08:00 98.7 100 16 115/79 (91) 99 Intake and Output 06/29/20 06/30/20 19:00 07:00 Intake Total 675 ml 600 ml Output Total 1000 ml Balance 675 ml -400 ml Intake Oral 120 ml 600 ml IV Total 555 ml Output Urine Total 1000 ml Laboratory Tests 06/29/20 06:56: White Blood Count 10.6, Red Blood Count 4.38L, Hemoglobin 14.1L, Hematocrit 41.0L, Mean Corpuscular Volume 94, Mean Corpuscular Hemoglobin 32.1H, Mean Corpuscular Hemoglobin Concent 34.3, Red Cell Distribution Width 11.6, Platelet Count 201, Mean Platelet Volume 7.3, Neutrophils (%) (Auto) , Lymphocytes (%) (Auto) , Monocytes (%) (Auto) , Eosinophils (%) (Auto) , Basophils (%) (Auto) , Differential Total Cells Counted 100, Neutrophils % (Manual) 85H, Lymphocytes % (Manual) 8L, Monocytes % (Manual) 5, Eosinophils % (Manual) 0, Basophils % (Manual) 0, Band Neutrophils 2, Platelet Estimate Adequate, Platelet Morphology Normal, Red Blood Cell Morphology Normal, Sodium Level 134L, Potassium Level 3.4L, Chloride Level 100, Carbon Dioxide Level 25, Anion Gap 9, Blood Urea Nitrogen 7, Creatinine 0.5L, Estimat Glomerular Filtration Rate > 60, Glucose Level 310#H, Calcium Level 8.4L, Magnesium Level 2.2 06/29/20 11:39: POC Whole Blood Glucose 202H 06/29/20 17:33: POC Whole Blood Glucose 126H 06/29/20 20:03: POC Whole Blood Glucose 68L 06/29/20 20:27: POC Whole Blood Glucose [Pending] 06/30/20 05:21: POC Whole Blood Glucose 267H Height (Feet): 5 Height (Inches): 6.00 Weight (Pounds): 140 General Appearance: no apparent distress Neck: normal alignment Cardiovascular: normal rate Respiratory/Chest: lungs clear Abdomen: normal bowel sounds Pelvis: normal external exam Objective Current Medications Medications (Trade) Dose Ordered Sig/Kalee Route PRN Reason Start Time Stop Time Status Last Admin Dose Admin Acetaminophen (Tylenol) 650 mg Q6H PRN ORAL For Headache 06/27/20 14:59 07/27/20 14:58 Dextrose (Dextrose 50%) 25 ml Q30M PRN IV Hypoglycemia 06/28/20 18:00 09/26/20 17:59 Dextrose (Dextrose 50%) 50 ml Q30M PRN IV Hypoglycemia 06/28/20 18:00 09/26/20 17:59 Heparin Sodium (Porcine) (Heparin 5000 units/ml) 5,000 units EVERY 12 HOURS SUBQ 06/27/20 21:00 08/11/20 20:59 06/29/20 21:43 Insulin Aspart (NovoLOG) BEFORE MEALS AND HS SUBQ 06/28/20 11:30 09/26/20 11:29 06/30/20 06:13 Insulin Aspart (NovoLOG) 6 units NOVOTIAC SUBQ 06/29/20 06:30 09/27/20 06:29 06/30/20 06:16 Insulin Detemir (Levemir) 18 units DAILY SUBQ 06/29/20 09:00 09/26/20 09:59 06/29/20 08:24 Lactated Ringer's 1,000 ml @ 75 mls/hr [id number] IV 06/29/20 11:00 07/29/20 10:59 06/30/20 00:20 Ondansetron HCl (Zofran) 4 mg Q6H PRN IVP Nausea & Vomiting 06/27/20 14:45 07/27/20 14:44 06/28/20 09:26 Pantoprazole (Protonix) 40 mg DAILY IV 06/28/20 09:00 07/28/20 08:59 06/29/20 08:18 Assessment/Plan Problem List: (1) DKA, type 2 ICD Codes: E11.10 - Type 2 diabetes mellitus with ketoacidosis without coma SNOMED: 766221483, 23982628 (2) Hyponatremia ICD Codes: E87.1 - Hypo-osmolality and hyponatremia SNOMED: 88963280, 66041690 (3) Hypokalemia ICD Codes: E87.6 - Hypokalemia SNOMED: 87170898, 20800682 (4) Dehydration ICD Codes: E86.0 - Dehydration SNOMED: 44154893, 50793775 Assessment/Plan: add Levemir 8 units qhs continue Levemir 18 units qam continue Novolog 6 units ac tid continue Novolog sliding scale ac / hs he will stay on insulin after discharge Naman Parisi MD Jun 30, 2020 06:24
[2020-06-30 07:30] LABS: HEMATOCRIT 37.1 % (42.0-52.0); HEMOGLOBIN 13.1 G/DL (14.2-18.0); MEAN CORPUSCULAR VOLUME 90 FL (80-99); PLATELET COUNT 195 K/UL (150-450); RED BLOOD COUNT 4.12 M/UL (4.70-6.10); RED CELL DISTRIBUTION WIDTH 11.9 % (11.6-14.8); WHITE BLOOD COUNT 13.3 K/UL (4.8-10.8)
[2020-06-30 07:55] LABS: ANION GAP 8 mmol/L (5-15); BLOOD UREA NITROGEN 7 mg/dL (7-18); CALCIUM 8.4 MG/DL (8.5-10.1); CARBON DIOXIDE 28 MMOL/L (21-32); CHLORIDE 100 MMOL/L (98-107); CREATININE 0.6 MG/DL (0.55-1.30); POTASSIUM 3.6 MMOL/L (3.5-5.1); SODIUM 136 MMOL/L (136-145)
[2020-06-30 08:00] VITALS: BP 95/61
[2020-06-30] MEDS: Levemir Flexpen SUBQ SCH (08:24)
[2020-06-30] MEDS: Heparin 5000 units/ml inj SUBQ SCH (08:26)
[2020-06-30] MEDS: Pantoprazole Inj IV SCH (09:00)
[2020-06-30] MEDS ORDERED: [UNRECOGNIZED DRUG - SUPPLY] MC (10:03)
[2020-06-30] MEDS ORDERED: NOVOLOG100 UNITS1 SUBQ (10:03)
[2020-06-30] MEDS ORDERED: LEVEMIR FL100 UNIT/1 SUBQ (10:03)
--- NOTE | 2020-06-30 10:03 | Discharge Instructions ---
Discharge Instructions Discharge Instructions Diet: diabetic calorie control Resume Normal Activity?: Yes Follow Up Orders Followup with PCP today at 4pm as scheduled For Congestive Heart Failure Reminder Report to your physician any weight gain of 5 pounds or more in one week. Robert Pagan D.O Jun 30, 2020 10:03
--- NOTE | 2020-06-30 11:48 | Discharge Summary ---
Discharge Summary Hospital Course Date of Admission Jun 27, 2020 at 07:18 Date of Discharge Admitting Diagnosis DKA HPI Ramon Méndez is a 44 year old male who was admitted on Jun 27, 2020 at 07:18 for Diabetic ketoacidosis General Appearance: no apparent distress, mild distress, alert oriented x3 EENT: PERRL/EOMI Neck: non-tender, normal inspection Cardiovascular: normal rate, regular rhythm, no JVD Respiratory/Chest: lungs clear, normal breath sounds, respiratory distress Abdomen: normal bowel sounds, non tender, soft Extremities: normal range of motion, non-tender Edema: no edema noted Arm (L), no edema noted Arm (R), no edema noted Leg (L), no edema noted Leg (R), no edema noted Pedal (L), no edema noted Pedal (R), no edema noted 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 Méndez is a 45-year-old male with past medical history of diabetes mellitus on oral medications who presents for DKA. Patient witnessed presented with severe nausea, vomiting, abdominal pain. Noted to have leukocytosis of 26, anion gap of 35, and bicarb of 12. He was admitted to the ICU after insulin drip with aggressive fluid resuscitation. Over the next few days acidosis anion gap closed and insulin drip drip was DC'd and transitioned to subcutaneous insulin. He has been now on Levemir 18 units in the morning and 8 units at night along with 6 units premeal. Patient improved over the course of hospitalization with no complications. He is medically stable for discharge today. He has a follow-up appointment with his primary care today later at 4 PM. A: # DKA # T2DM # Nausea/Vomiting # Hypokalemia # ERICKA 2/2 prerenal azotemiaresolved # Pseudohyponatremia secondary to hyperglycemia # Marijuana dependence P: Patient to continue Levemir 18 units in the morning and 6 Premeal, he already has a glucometer at home which I informed him to do his readings 3 times a day. I instructed him the symptoms and signs of hypoglycemia and how to treat i.e. drinking orange juice, eating candy,. Patient will follow up with primary care today later at 4 PM. Time spent on this encounter was 41 minutes which included 28 minutes of counseling and care coordination. I discussed with the nurse at bedside. Time of note may not reflect time patient was seen. Discharge Discharge Vital Signs Last Vital Signs Date Time Temp Pulse Resp B/P (MAP) Pulse Ox O2 Delivery O2 Flow Rate FiO2 06/30/20 09:32 Room Air Room Air 06/30/20 08:00 104 06/30/20 08:00 99.0 21 95/61 (72) 98 Discharge Disposition Patient was discharged to Robert Pagan D.O Jun 30, 2020 11:48
[2020-06-30 12:07] VITALS: BP 97/58
[2020-06-30] MEDS ORDERED: Levemir Flexpen SUBQ SCH (21:00)
--- NOTE | 2020-07-01 16:56 | Cardiology Report ---
APPROVED REPORT EKG Measurement Heart [id number] <Conclusion> Sinus tachycardia with premature atrial complexes Right atrial enlargement Borderline ECG
== END 2020-06-30 12:50 | disposition home or self-care (01) | DRG 638 ==
LOC: EDBD 06:21 → EMR 06:38 → ICU 07:18 → EDBEDREQ 10:19 → 2E 06-28 17:11
DX: E11.10 Type 2 diabetes mellitus with ketoacidosis without coma (principal); N17.9 Acute kidney failure, unspecified; E87.1 Hypo-osmolality and hyponatremia; E87.6 Hypokalemia; F12.20 Cannabis dependence, uncomplicated; Z79.4 Long term (current) use of insulin; E86.0 Dehydration
CPT/HCPCS: 36415; 71045; 80048; 80053; 80307; 81003; 82009; 82803; 82962; 83036; 83605; 83690; 83735; 84484; 85007; 85025; 87040; 87081; 93005; 96365; 96368; 96375; 99291; J1815; J2405; J7030; J8499; S5561